=== PATIENT | female | born 1965 | race African-American/Black ===

== ENCOUNTER 2018-08-17 10:54 | Emergency (ER) | payer MEDICARE ==
[~2018-08-17] VITALS: Ht 175.3 cm; Wt 102.1 kg
[2018-08-17 11:02] VITALS: BP 103/52
--- NOTE | 2018-08-17 11:31 | RAD ---
Examination: 4 views of the right knee History history of right knee pain, fall COMPARISON: 11/16/2015 FINDINGS: There is moderate joint space loss identified in the medial, lateral, patellofemoral compartments. Small knee joint effusion. Mild fat stranding identified about the knee joint anteriorly. IMPRESSION: 1. No acute osseous findings. 2. Moderate tricompartmental degenerative changes. 3. Small knee joint effusion. Electronically signed by: Foster Valdes MD (08/17/2018 11:28 AM) [facility]
[2018-08-17] MEDS ORDERED: CETIRIZINE HCL 10 MG TABLET. PO STA (11:48)
--- NOTE | 2018-08-17 11:57 | PHYS DOC ---
Past Medical History Past Medical History: Cancer, Other Additional Past Medical Histor: BREAST CA, MS (NASHKINGS PRUETT) Past Surgical History: Other Additional Past Surgical Histo: RT KNEE MENISCUS (NASHKINGS PRUETT) Alcohol Use: None Drug Use: None (NASHKINGS PRUETT) Adult General Chief Complaint Chief Complaint: KNEE INJURY HPI HPI Patient is a 53 year old female who presents with a sharp intermittent 8 out of 10 right anterior knee pain that began yesterday after she slipped on ice and fell on her knee. Patient denies any loss of consciousness. Patient states the pain is worse on weight bearing and flexion. Patient states she has tried taking Aleve with no relief. (NASHKINGS PRUETT) Review of Systems Review of Systems Constitutional: Denies fever or chills [] Musculoskeletal: Reports right anterior knee pain Integument: Denies rash or skin lesions [] Neurologic: Denies headache, focal weakness or sensory changes [] All other systems were reviewed and found to be within normal limits, except as documented in this note. (NASHKINGS PRUETT) Current Medications Current Medications Current Medications Medications (Trade) Dose Ordered Sig/Ying Start Time Stop Time Status Last Admin Dose Admin Acetaminophen/ Hydrocodone Bitart (Lortab 5/325) 2 tab 1X ONCE 08/17/18 12:00 08/17/18 12:01 DC 08/17/18 12:01 2 TAB Cetirizine HCl (ZyrTEC) 10 mg 1X STAT 08/17/18 11:48 08/17/18 11:52 DC 08/17/18 12:01 10 MG (NASIMA VEGAS DO) Allergies Allergies Allergies Coded Allergies Type Severity Reaction Last Updated Verified morphine Allergy Intermediate Hives 08/17/18 Yes (NASIMA VEGAS DO) Physical Exam Physical Exam Constitutional: Well developed, well nourished, no acute distress, non-toxic appearance. [] Skin: Warm, dry, no erythema, no rash. [] Back: No tenderness, no CVA tenderness. [] Extremities: Right knee with moderate soft tissue swelling especially on the anterior aspect. Tenderness diffusely throughout the right knee worse on the anterior aspect. Limited range of motion to the right knee especially flexion due to pain. +2 right pedal pulse. Cap refill less than 2 seconds the right toes. Sensation intact to the right lower extremity Neurologic: Alert and oriented X 3, normal motor function, normal sensory function, no focal deficits noted. [] Psychologic: Affect normal, judgement normal, mood normal. [] (KINGS CAO APRN) Current Patient Data Vital Signs Vital Signs Date Time Temp Pulse Resp B/P (MAP) Pulse Ox O2 Delivery O2 Flow Rate FiO2 08/17/18 11:02 99.1 60 16 103/52 (69) 98 Room Air 99.1 (NASIMA VEGAS DO) EKG EKG [] (KINGS CAO APRN) Radiology/Procedures Radiology/Procedures []PROCEDURE: KNEE RIGHT 4V Examination: 4 views of the right knee History history of right knee pain, fall COMPARISON: 11/16/2015 FINDINGS: There is moderate joint space loss identified in the medial, lateral, patellofemoral compartments. Small knee joint effusion. Mild fat stranding identified about the knee joint anteriorly. IMPRESSION: 1. No acute osseous findings. 2. Moderate tricompartmental degenerative changes. 3. Small knee joint effusion. Electronically signed by: Foster Valdes MD (08/17/2018 11:28 AM) [facility] DICTATED and SIGNED BY: FOSTER VALDES MD DATE: 08/17/18 1126 (KINGS CAO APRN) Course & Med Decision Making Course & Med Decision Making Pertinent Labs and Imaging studies reviewed. (See chart for details) This is a 53-year-old female patient presenting to the ED today with right knee pain status post falling. Right knee x-rays interpreted by radiologist are negative for any acute findings, noted for DJD as well as small joint effusion. Patient already has a brace to the knee. Neurovascular exam done by me post breast application is normal. Ice elevation encouraged. Follow-up with orthopedic doctor in one week. (KINGS CAO APRN) Dragon Disclaimer Dragon Disclaimer This electronic medical record was generated, in whole or in part, using a voice recognition dictation system. (KINGS CAO APRN) Departure Departure Impression: Primary Impression: Right knee DJD Additional Impressions: Fall from standing Contusion of knee, right Effusion of knee joint right Disposition: 01 HOME, SELF-CARE Condition: STABLE Referrals: BLADE CHAMORRO MD (PCP) LAVERN ROCKWELL II, MD Follow-up in one week if pain continues Patient Instructions: Arthritis, Degenerative-Brief, Knee Pain, [id number] Additional Instructions: You evaluated in the emergency room for right knee pain, your right knee x-rays were negative for any acute findings. Wear the brace you have to the knee as tolerated. Ice and elevate the extremity. Take Tylenol or Aleve as needed for pain. Attending Signature Attending Signature I have reviewed the PA/MOISTURE METER OPERATOR's note and plan of care. I was available for consultation as needed during the patient's visit in the emergency department. I agree with the clinical impression, plan, and disposition. (NASIMA VEGAS DO) Problem Qualifiers Primary Impression: Right knee DJD Osteoarthritis type: unspecified Qualified Codes: M17.11 - Unilateral primary osteoarthritis, right knee Additional Impressions: Fall from standing Encounter type: initial encounter Qualified Codes: W19.XXXA - Unspecified fall, initial encounter Contusion of knee, right Encounter type: initial encounter Qualified Codes: S80.01XA - Contusion of right knee, initial encounter KINGS CAO APRN Aug 17, 2018 11:57 NASIMA VEGAS DO Aug 19, 2018 10:14
[2018-08-17] MEDS ORDERED: HYDROcodone/APAP 5/325MG 1 TAB TABLET PO ONE (12:00)
== END 2018-08-17 12:06 | disposition home or self-care (01) ==
LOC: ER 10:54
DX: S80.01XA Contusion of right knee, initial encounter (principal); M17.11 Unilateral primary osteoarthritis, right knee; Z88.5 Allergy status to narcotic agent; W00.2XXA Other fall from one level to another due to ice and snow, initial encounter; Y93.89 Activity, other specified; Y92.89 Other specified places as the place of occurrence of the external cause; Y99.8 Other external cause status
CPT/HCPCS: 73564; 99283

== ENCOUNTER 2018-11-16 15:30 | Emergency (ER) | payer MEDICARE ==
[~2018-11-16] VITALS: Ht 175.3 cm; Wt 95.3 kg
[2018-11-16] MEDS ORDERED: CYCLOBENZAPRINE 10 MG TABLET. PO ONE (16:15)
[2018-11-16] MEDS ORDERED: fentaNYL PF VIAL 100 MCG/2 ML VIAL IM ONE (16:15)
--- NOTE | 2018-11-16 16:19 | PHYS DOC ---
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 Patient complaining of gradual onset of left lower back since yesterday as a constant pain with muscular spasm that gradually getting worse and rated her pain 10 over 10. Patient denies radiation of pain and injury, nausea and vomiting, abdominal pain, chest pain and shortness of breath. Patient states she had the same pain previously that usually responded to ibuprofen but this time she did not get better with taking ibuprofen. Review of Systems Review of Systems Constitutional: Denies fever or chills [] Eyes: Denies change in visual acuity, redness, or eye pain [] HENT: Denies nasal congestion or sore throat [] Respiratory: Denies cough or shortness of breath [] Cardiovascular: No additional information not addressed in HPI [] GI: Denies abdominal pain, nausea, vomiting, bloody stools or diarrhea [] : Denies dysuria or hematuria [] Musculoskeletal: Reports back pain, denies joint pain [] Integument: Denies rash or skin lesions [] Neurologic: Denies headache, focal weakness or sensory changes [] Endocrine: Denies polyuria or polydipsia [] All other systems were reviewed and found to be within normal limits, except as documented in this note. Current Medications Current Medications Current Medications Medications (Trade) Dose Ordered Sig/Ying Start Time Stop Time Status Last Admin Dose Admin Cyclobenzaprine HCl (Flexeril) 10 mg 1X ONCE 11/16/18 16:15 11/16/18 16:16 DC 11/16/18 16:12 10 MG Fentanyl Citrate (Fentanyl 2ml Vial) 50 mcg 1X ONCE 11/16/18 16:15 11/16/18 16:16 DC 11/16/18 16:13 50 MCG Allergies Allergies Allergies Coded Allergies Type Severity Reaction Last Updated Verified morphine Allergy Intermediate Hives 08/17/18 Yes Physical Exam Physical Exam Constitutional: Well nourished, moderate distress, non-toxic appearance. [] HENT: Normocephalic, atraumatic, oropharynx moist, no oral exudates, nose normal. [] Eyes: PERRLA, EOMI, conjunctiva normal, no discharge. [] Neck: Normal range of motion, no tenderness, supple, no stridor. [] Cardiovascular:Heart rate regular rhythm, no murmur [] Lungs & Thorax: Bilateral breath sounds clear to auscultation [] Abdomen: Bowel sounds normal, soft, no tenderness, no masses, no pulsatile masses. [] Skin: Warm, dry, no erythema, no rash. [] Back: No midline tenderness, painful range of motion, left paraspinal muscular spasm, no CVA tenderness. [] Extremities: No tenderness, no cyanosis, no clubbing, ROM intact, no edema. [] Neurologic: Alert and oriented X 3, normal motor function, normal sensory function, no focal deficits noted. [] Psychologic: Affect anxious, judgement normal, mood normal. [] Current Patient Data Vital Signs Vital Signs Date Time Temp Pulse Resp B/P (MAP) Pulse Ox O2 Delivery O2 Flow Rate FiO2 11/16/18 16:46 67 119/80 (93) 99 Room Air 11/16/18 15:34 98.6 21 98.6 EKG EKG [] Radiology/Procedures Radiology/Procedures [] Course & Med Decision Making Course & Med Decision Making I've spoken with the patient and/or caregivers. I've explained the patient's condition, diagnosis and treatment plan based on information available to me at this time. I've answered the patient's and/or caregivers questions and addressed any concerns. The patient and/or caregivers have a good understanding the patient's diagnosis, condition and treatment plan as can be expected at this point. Vital signs have been stabilized. The patient's condition is stable for discharge from the emergency department. The patient will pursue further outpatient evaluation with her primary care provider or other designated consulting physician as outlined in the discharge instructions. Patient and/or caregivers are agreeable to this plan of care and follow-up instructions have been explained in detail. The patient and/or caregivers have received these instructions in written format and expressed understanding of these discharge instructions. The patient and her caregivers are aware that if any significant change in condition or worsening of symptoms should prompt him to immediately return to this of the closest emergency department. If an emergent department is not readily available I would encourage him to call 911. Ambrose Disclaimer Ambrose Disclaimer This electronic medical record was generated, in whole or in part, using a voice recognition dictation system. Departure Departure Impression: Primary Impression: Muscle spasm of back Disposition: HOME, SELF-CARE (at 1704) Condition: IMPROVED Referrals: BLADE CHAMORRO MD (PCP) Patient Instructions: Muscle Cramps Additional Instructions: Drink plenty of liquids Follow-up with your primary care physician in 3-5 days Return to ER if not getting better Apply ice on the affected area Scripts Naproxen (NAPROSYN) 500 Mg Tablet 1 TAB PO BID for pain, #20 TAB Prov: CHELSEA FERNANDEZ MD 11/16/18 Cyclobenzaprine Hcl (CYCLOBENZAPRINE HCL) 10 Mg Tablet 1 TAB PO TID for muscle pain, #30 TAB Prov: CHELSEA FERNANDEZ MD 11/16/18 CHELSEA FERNANDEZ MD November 16, 2018 16:18
[2018-11-16 16:46] VITALS: BP 119/80
[2018-11-16] MEDS ORDERED: NAPR-683 PO (17:06)
[2018-11-16] MEDS ORDERED: CYCL10TA2 PO (17:06)
== END 2018-11-16 17:18 | disposition home or self-care (01) ==
LOC: ER 15:30
DX: M62.830 Muscle spasm of back (principal); M54.5 Low back pain; Z88.5 Allergy status to narcotic agent
CPT/HCPCS: 96372; 99283; J3010

== ENCOUNTER 2019-04-21 07:42 | Emergency (ER) | payer MEDICARE ==
[~2019-04-21] VITALS: Ht 175.3 cm; Wt 104.3 kg
[~2019-04-21 07:42] MED LIST: CYCL10TA2 PO; NAPR-683 PO
[2019-04-21 08:32] VITALS: BP 128/77
[2019-04-21] MEDS ORDERED: ORPHENADRINE CITRATE 60 MG/2 ML VIAL. IM ONE (09:15)
[2019-04-21] MEDS ORDERED: KETOROLAC 60 MG/2 ML VIAL. IM ONE (09:15)
[2019-04-21] MEDS ORDERED: HYDROcodone/APAP 5/325MG 1 TAB TABLET PO ONE (09:15)
--- NOTE | 2019-04-21 09:28 | PHYS DOC ---
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 (MUSHTAQ CAMPOS MD) Adult General Chief Complaint Chief Complaint: BACK PAIN - NO INJURY HPI HPI Patient is a 54 year old female who presents with chronic low back pain and muscle spasms. Patient says she has chronic lumbar disc pain she has MS with lesions to her spine. Patient states that 2 days ago she got up too fast and felt like her lower back gave out and having muscle spasms. Patient states this morning she got up in her low back gave out and she fell to the floor. Patient states that she had a hard time getting up and she had to urinate and urinated on herself. Patient is rating her pain a 9 out of 10. Patient states she can ambulate and denies any numbness or tingling. Patient states she denies incontinence of bladder or bowel. He shouldn't is offered a CT of her lower back and she states "that's not can be thorough nothing either one x-ray", patient states my usual protocol is to get an MRI of my lower back. I told patient that she will not begin an MRI of her lower back in the ED today. I have told patient that she needs to follow-up with her neurologist and/or primary care provider to have an MRI scheduled if she still needs it." Patient states she "doesn't want to waste money but fine but she is due this." Patient also states that cyclobenzaprine, tizanidine, and naproxen don't work for her. Patient states hyd rocodone saying that works for her. (MARY RILEY APRN) Review of Systems Review of Systems Musculoskeletal: low back pain or joint pain [] All other systems were reviewed and found to be within normal limits, except as documented in this note. (MARY RILEY APRN) Current Medications Current Medications Current Medications Medications (Trade) Dose Ordered Sig/Ying Start Time Stop Time Status Last Admin Dose Admin Acetaminophen/ Hydrocodone Bitart (Lortab 5/325) 1 tab 1X ONCE 04/21/19 09:15 04/21/19 09:20 DC 04/21/19 09:33 1 TAB Ketorolac Tromethamine (Toradol Im) 60 mg 1X ONCE 04/21/19 09:15 04/21/19 09:19 DC 04/21/19 09:37 60 MG Orphenadrine Citrate (Norflex) 60 mg 1X ONCE 04/21/19 09:15 04/21/19 09:19 DC 04/21/19 09:35 60 MG (MUSHTAQ CAMPOS MD) Allergies Allergies Allergies Coded Allergies Type Severity Reaction Last Updated Verified morphine Allergy Intermediate Hives 08/17/18 Yes (MUSHTAQ CAMPOS MD) Physical Exam Physical Exam Constitutional: Well developed, well nourished, no acute distress, non-toxic appearance. [] HENT: Normocephalic, atraumatic, bilateral external ears normal, oropharynx moist, no oral exudates, nose normal. [] Eyes: PERRLA, EOMI, conjunctiva normal, no discharge. [] Neck: Normal range of motion, no tenderness, supple, no stridor. [] Skin: Warm, dry, no erythema, no rash. [] Back: Lumbar spinal and para spinal tenderness, no CVA tenderness. [] Extremities: No tenderness, no cyanosis, no clubbing, ROM intact, no edema. [] Neurologic: Alert and oriented X 3, normal motor function, normal sensory function, no focal deficits noted. [] Psychologic: Affect normal, judgement normal, mood normal. [] (MARY RILEY APRN) Current Patient Data Vital Signs Vital Signs Date Time Temp Pulse Resp B/P (MAP) Pulse Ox O2 Delivery O2 Flow Rate FiO2 04/21/19 09:33 97 Room Air 04/21/19 08:32 98.2 71 20 128/77 (94) 98.2 (MUSHTAQ CAMPOS MD) EKG EKG [] (MARY RILEY APRN) Radiology/Procedures Radiology/Procedures [] (MARY RILEY APRN) Impressions: [facility] [address] [place] [address] IMAGING REPORT Signed PATIENT: ROMMEL TOM ACCOUNT: [id number] : 1965 LOCATION: ER AGE: 54 SEX: F EXAM STATUS: REG ER ORD. PHYSICIAN: MARY RILEY APRN REASON: back pain PROCEDURE: CT LUMBAR SPINE WO CONTRAST CT LUMBAR SPINE WO CONTRAST Date: 04/21/2019 9:09 AM Indication: Back pain. Comparison: None. Technique: Helical CT images of the lumbar spine were obtained without contrast. Coronal and sagittal reformatted images were also performed. One or more of the following dose reduction techniques were utilized: Automated exposure control (AEC), Adjustment of mA and/or kV according to patient size, Use of iterative reconstruction technique such as ASiR, CT scan done according to ALARA and image gently/image wisely. Findings: Numerous lytic lesions throughout the visualized spine, ribs, and pelvis. Pathologic fracture at T11 with 50 percent loss of vertebral body height. No significant osseous retropulsion. Schmorl's nodes along superior endplate of L3 and L4. Mild multilevel degenerative disc disease. Multilevel predominately mild spinal canal narrowing. Multilevel neural foraminal narrowing, worst and moderate at L5-S1. Cholelithiasis. The visualized abdominal aorta is normal caliber. IMPRESSION: Lytic lesions seen diffusely throughout the visualized osseous structures, likely osseous metastatic disease or multiple myeloma. Pathologic fracture at T11 with 50 percent height loss. No significant osseous retropulsion. Schmorl's nodes along superior endplate of L3 and L4 may also be acute and/or pathologic given underlying lytic lesions. Findings were called to Mary Riley at 9:45 AM on 04/21/2019 FOR INTERNAL CODING PURPOSES RESULT CODE: (C) Electronically signed by: Chacorta Bird MD (04/21/2019 9:54 AM) [id number] DICTATED and SIGNED BY: CHACORTA BIRD MD DATE: 04/21/19 0954 (MARY RILEY APRN) Course & Med Decision Making Course & Med Decision Making Equal strength in bilateral lower extremities. Patient denies any incontinence of bowel or bladder. Patient denies any numbness or tingling. Patient is ambulatory with a slow steady gait. No extremity edema. Skin pink warm and dry. Patient has lumbar bony spinal tenderness and paraspinal tenderness. There is no thoracic spinal tenderness. There is no deformity or bruising seen on her back. Patient denies any other symptoms. Denies radiation of pain. Patient denies hitting her head or LOC with the fall. Patient denies any neck pain. Patient is able to rotate at her back and reach back for her purse is on the back of the wheelchair without complication. CT shows: Lytic lesions seen diffusely throughout the visualized osseous structures, likely osseous metastatic disease or multiple myeloma. Pathologic fracture at T11 with 50 percent height loss. No significant osseous retropulsion. Schmorl's nodes along superior endplate of L3 and L4 may also be acute and/or pathologic given underlying lytic lesions. I have consulted with Dr Campos on this patients findings. Patient is scheduled to see her oncologist for her breast cancer on Sunday. Patient sees Dr.Bettina Lewis oncologist. I have spoken to Dr Joshua Magallon's nurse and told her the results of the CT. I am faxing the office the CT report. (MARY RILEY APRN) Dragon Disclaimer Dragon Disclaimer This electronic medical record was generated, in whole or in part, using a voice recognition dictation system. (MARY RILEY APRN) Departure Departure Impression: Primary Impression: Back pain Additional Impression: Abnormal CT of spine Disposition: HOME, SELF-CARE Condition: STABLE Referrals: BLADE CHAMORRO MD (PCP) Patient Instructions: Back Pain, Adult Additional Instructions: Follow-up with your oncologist on Sunday as scheduled. Scripts Hydrocodone Bit/Acetaminophen (HYDROCODONE-APAP 5-325 ) 1 Tab Tablet 1 TAB PO PRN Q6HRS PRN for PAIN, #10 TAB 0 Refills Prov: MARY RILEY APRN 04/21/19 Problem Qualifiers Primary Impression: Back pain Back pain location: low back pain Chronicity: chronic Back pain laterality: midline Sciatica presence: without sciatica Qualified Codes: M54.5 - Low back pain; G89.29 - Other chronic pain MARY RILEY APRN Apr 21, 2019 09:27 MUSHTAQ CAMPOS MD Apr 22, 2019 06:00
--- NOTE | 2019-04-21 09:57 | RAD ---
CT LUMBAR SPINE WO CONTRAST Date: 04/21/2019 9:09 AM Indication: Back pain. Comparison: None. Technique: Helical CT images of the lumbar spine were obtained without contrast. Coronal and sagittal reformatted images were also performed. One or more of the following dose reduction techniques were utilized: Automated exposure control (AEC), Adjustment of mA and/or kV according to patient size, Use of iterative reconstruction technique such as ASiR, CT scan done according to ALARA and image gently/image wisely. Findings: Numerous lytic lesions throughout the visualized spine, ribs, and pelvis. Pathologic fracture at T11 with 50 percent loss of vertebral body height. No significant osseous retropulsion. Schmorl's nodes along superior endplate of L3 and L4. Mild multilevel degenerative disc disease. Multilevel predominately mild spinal canal narrowing. Multilevel neural foraminal narrowing, worst and moderate at L5-S1. Cholelithiasis. The visualized abdominal aorta is normal caliber. IMPRESSION: Lytic lesions seen diffusely throughout the visualized osseous structures, likely osseous metastatic disease or multiple myeloma. Pathologic fracture at T11 with 50 percent height loss. No significant osseous retropulsion. Schmorl's nodes along superior endplate of L3 and L4 may also be acute and/or pathologic given underlying lytic lesions. Findings were called to Mary Riley at 9:45 AM on 04/21/2019 FOR INTERNAL CODING PURPOSES RESULT CODE: (C) Electronically signed by: Bryant Bird MD (04/21/2019 9:54 AM) [id number]
[2019-04-21] MEDS ORDERED: HYDR-2761 PO (10:32)
== END 2019-04-21 11:08 | disposition home or self-care (01) ==
LOC: ER 07:42
DX: M54.5 Low back pain (principal); G89.29 Other chronic pain; R93.7 Abnormal findings on diagnostic imaging of other parts of musculoskeletal system; Z85.3 Personal history of malignant neoplasm of breast; Z88.5 Allergy status to narcotic agent
CPT/HCPCS: 72131; 96372; 99284; J1885; J2360